=== PATIENT | female | born 1995 | race Caucasian/White ===

== ENCOUNTER → 2018-01-14 | Outpatient (CLI) | payer OTHER ==
[2018-01-14 19:17] LABS: HEMOGLOBIN 14.7 g/dl (12.0-15.5); MEAN CORPUSCULAR HEMOGLOBIN 30.9 pg (27.0-33.0); MEAN CORPUSCULAR HGB CONC 34.2 g/dl (32.0-36.5); MEAN CORPUSCULAR VOLUME 90.3 fl (80.0-96.0); PLATELET COUNT, AUTOMATED 295 10^3/uL (150-450); RED BLOOD COUNT 4.76 10^6/uL (4.00-5.40); RED CELL DISTRIBUTION WIDTH 11.4 % (11.5-14.5); WHITE BLOOD COUNT 6.7 10^3/uL (4.0-10.0)
[2018-01-14 19:36] LABS: CONTROL LINE HCG INT CTR LINE PRESENT; HCG, SERUM QUALITATIVE NEGATIVE (NEGATIVE)
[2018-01-14 19:45] LABS: FREE T4 1.07 NG/DL (0.76-1.46)
== END ==
LOC: M RAD 17:57
DX: N83.201 Unspecified ovarian cyst, right side (principal); N92.6 Irregular menstruation, unspecified; R10.2 Pelvic and perineal pain
CPT/HCPCS: 76856

== ENCOUNTER 2018-02-17 09:02 | Emergency (ER) | payer OTHER ==
[~2018-02-17] VITALS: Ht 167.6 cm; Wt 72.7 kg
[2018-02-17 09:03] VITALS: BP 130/84
[2018-02-17] MEDS ORDERED: LEVOTAB19 (09:08)
[2018-02-17 09:52] LABS: URINE PREG TEST NEGATIVE (NEGATIVE)
[2018-02-17] MEDS ORDERED: BACT800T5 PO (10:13)
== END 2018-02-17 10:21 | disposition home or self-care (01) ==
LOC: M ED 09:02
DX: N30.00 Acute cystitis without hematuria (principal)

== ENCOUNTER → 2018-04-02 | Outpatient (CLI) | payer OTHER ==
[~2018-04-02] MED LIST: BACT800T5 PO; LEVOTAB19
--- NOTE | 2018-04-03 05:54 | REP ---
Clinical: Ovarian cyst. Comparison: 01/14/2018 . Technique: Transabdominal pelvic ultrasound followed by transvaginal examination for better evaluation of the endometrium and adnexa with color Doppler evaluation of the ovaries. Findings: Bladder is unremarkable and measures 11.0 x 11.6 x 8.2 cm . Normal anteverted uterus measures 6.7 x 3.1 x 4.2 cm . The endometrial complex measures 6.8 mm thickness. No discrete uterine or endometrial abnormalities are appreciated. Bilateral ovaries are normal in vascularity without evidence for torsion. Right ovary measures 4.0 x 2.7 x 3.2 cm and again includes 3.2 x 2.4 x 2.4 cm simple cyst ; R I = 0.65 . Left ovary measures 2.1 x 1.2 x 1.5 cm with 1 cm dominant follicle ; R I = 0.64 . No pelvic free fluid . Impression: 1. Normal uterus and left ovary. 2. 3.2 cm right ovarian simple cyst minimally increased in size from prior examination. This may still represent a physiologic structure and follow-up in 4-6 weeks may be warranted for second reevaluation. Electronically Signed by Otis Alaom MD 04/03/2018 05:46 A
== END ==
LOC: M RAD 13:22
PROVIDERS: ATTEND Advanced Practice Midwife
DX: N83.201 Unspecified ovarian cyst, right side (principal)

== ENCOUNTER → 2018-05-28 | Outpatient (REF) | payer OTHER | LOC: M LAB REF 17:34 | PROVIDERS: ATTEND Advanced Practice Midwife | DX: Z12.4 Encounter for screening for malignant neoplasm of cervix (principal) ==

== ENCOUNTER → 2018-06-03 | Outpatient (CLI) | payer OTHER ==
--- NOTE | 2018-06-03 15:10 | REP ---
REASON: History of right ovarian cyst. COMPARISON: 04/02/2018, which showed a 3.2 cm sized right ovarian cyst. Transvesical and transvaginal imaging were obtained. The uterus measures 7.2 x 3.5 x 4.3 cm. The parenchymal echopattern is unchanged. The endometrial echocomplex is again seen to be within normal limits measuring 7 mm. Right ovary measures 3.5 x 1.4 x 1.5 cm and is within normal limits. Left ovary measures 3.3 x 1.8 x 2.3 cm and is within normal limits. There is a small amount of free fluid in the right adnexa. The urinary bladder measures 10 x 7 x 11 cm. IMPRESSION: Pelvic ultrasonography is within normal limits. The previously present cyst has resolved. Electronically Signed by Shyam Todd DO 06/04/2018 11:54 A
== END ==
LOC: M RAD 12:39
PROVIDERS: ATTEND Advanced Practice Midwife
DX: Z87.42 Personal history of other diseases of the female genital tract (principal)